=== PATIENT | male | born 1980 | race African-American/Black ===

== ENCOUNTER 2016-07-11 10:21 | Emergency (ER) | payer SELFPAY ==
[2016-07-11 10:32] VITALS: BP 152/99; PULSE 84; TEMP 97.8; BMI 20.9
[2016-07-11 11:14] LABS: URINE APPEARANCE CLEAR; URINE BILIRUBIN NEGATIVE (NEGATIVE); URINE BLOOD NEGATIVE (NEGATIVE); URINE COLOR LTYELLOW; URINE GLUCOSE (UA) NEGATIVE (NEGATIVE); URINE KETONE NEGATIVE (NEGATIVE); URINE LEUK ESTERASE NEGATIVE (NEGATIVE); URINE NITRITE NEGATIVE (NEGATIVE); URINE PROTEIN NEGATIVE (NEGATIVE); URINE UROBILINOGEN NEGATIVE E.U./dl (0.2-1.0)
[2016-07-11] MEDS ORDERED: AZITHROMYCIN 1 GM PACKET PO ONE (12:03)
[2016-07-11] MEDS ORDERED: AZITHROMYCIN 1 GM PACKET ONE (12:05)
--- NOTE | 2016-07-11 12:08 | PDOC ---
[id number]: STD TESTING Time Seen by Provider: 07/11/16 10:42 History Source: Patient Exam Limitations: No Limitations - History of Present Illness Initial Comments: 07/11/16 12:03 Chief complaint: Exposure to Trichomonas and unprotected sex History of present illness: Patient is a 36-year-old male with a history of scoliosis with spinal fusion hypospadias here today due to his girlfriend telling him that she had Trichomonas a few weeks ago. Patient denies having sex with other partners however has unprotected sex with his girlfriend. Patient denies any dysuria, penile discharge or pain, or any testicular discomfort or any lesions on penis or testicles. Patient reports that he would like to be treated prophylactically for chlamydia and gonorrhea. 07/11/16 12:10 Timing/Duration: other (girlfriend had trichomonas) Associated Symptoms: reports: denies symptoms Past History - Past Medical History Allergies/Adverse Reactions: Allergies Allergy/AdvReac Type Severity Reaction Status Date / Time No Known Allergies Allergy Verified 07/11/16 10:28 Home Medications: Ambulatory Orders NK [No Known Home Medication] 07/11/16 Other medical history: SCOLIOSIS - Surgical History Abdominal Surgery: Yes (HERNIA) Neurologic Surgery: Yes (SPINAL FUSION) - Psycho/Social/Smoking Cessation Hx Suicidal Ideation: No Smoking History: Current every day smoker Have you smoked in the past 12 months: Yes Number of Cigarettes Smoked Daily: 10 Information on smoking cessation initiated: No Review of Systems - Review of Systems Able to Perform ROS?: Yes Constitutional: No: Symptoms Reported HEENTM: No: Symptoms Reported Respiratory: No: Symptoms reported Cardiac (ROS): No: Symptoms Reported ABD/GI: No: Symptoms Reported : Yes: Other (exposure to trichmonas and unprotected sex) Musculoskeletal: No: Symptoms Reported Integumentary: No: Symptoms Reported Neurological: No: Symptoms reported *Physical Exam - Vital Signs Last Vital Signs Temp Pulse Resp BP Pulse Ox 97.8 F 84 19 152/99 97 07/11/16 10:28 07/11/16 10:28 07/11/16 10:28 07/11/16 10:28 07/11/16 10:28 - Physical Exam General Appearance: Yes: Appropriately Dressed Respiratory/Chest: positive: Lungs Clear, Normal Breath Sounds Cardiovascular: positive: Regular Rhythm, Regular Rate, S1, S2 Male Genitalia: positive: normal genitalia, other (circumcized, no lesions). negative: discharge, testicular tenderness, testicular mass, epididymus tender, inguinal hernia, hernia, hematuria Integumentary: positive: Normal Color ED Treatment Course - ADDITIONAL ORDERS Additional order review: Laboratory Results 07/11/16 10:50 Urine Color Ltyellow Urine Appearance Clear Urine pH 7.0 Ur Specific [place] 1.012 Urine Protein Negative Urine Glucose (UA) Negative Urine Ketones Negative Urine Blood Negative Urine Nitrite Negative Urine Bilirubin Negative Urine Urobilinogen Negative Ur Leukocyte Esterase Negative Medical Decision Making - Medical Decision Making Patient is a 36-year-old male with a history of scoliosis with spinal fusion hypospadias here today due to his girlfriend telling him that she had Trichomonas a few weeks ago. Patient denies having sex with other partners however has unprotected sex with his girlfriend. Patient denies any dysuria, penile discharge, or any testicular discomfort or any lesions on penis or testicles. Patient reports that he would like to be treated prophylactically for chlamydia and gonorrhea. r/o STD Unprotected sex exposure to trichomonas Prophylactic treatment for GC chlamydia PLAN: RPR U/A' urine for chlamydia/GC rocephin 250 gm IM now azithromycin 1 GM now flagyl 500 mg bid for 7 days 07/11/16 12:02 Laboratory Tests 07/11/16 10:50 Urine Color Ltyellow Urine Appearance Clear Urine pH 7.0 Ur Specific [place] 1.012 Urine Protein Negative Urine Glucose (UA) Negative Urine Ketones Negative Urine Blood Negative Urine Nitrite Negative Urine Bilirubin Negative Urine Urobilinogen Negative Ur Leukocyte Esterase Negative 07/11/16 12:05 *DC/Admit/Observation/Transfer Diagnosis at time of Disposition: Unprotected sex, Exposure to trichomonas, Concern about STD in male without diagnosis - Discharge Dispostion Disposition: HOME Condition at time of disposition: Stable - Patient Instructions Additional Instructions: Use condoms when having sexual relations Follow-up with primary care provider Return to emergency room if any symptoms develop Patient voiced understanding of discharge instructions and all questions were answered
== END 2016-07-11 13:09 | disposition home or self-care (01) ==
LOC: JERFT 10:21
DX: Z77.21 Contact with and (suspected) exposure to potentially hazardous body fluids (principal); Z20.2 Contact with and (suspected) exposure to infections with a predominantly sexual mode of transmission
CPT/HCPCS: 36415; 81003; 86593; 87086; 87491; 87591; 99281-25